=== PATIENT | female | born 1965 | race Caucasian/White ===

== ENCOUNTER 2024-01-10 08:38 | Observation (INO) | payer OTHER ==
--- NOTE | 2024-01-10 09:14 | ED ---
General Adult HPI - General Chief complaint: Headache Stated complaint: Headache Time Seen by Provider: 01/10/24 08:44 Source: patient, family Mode of arrival: ambulatory Limitations: no limitations - History of Present Illness Initial comments: Dictation was produced using [employer] dictation software. please excuse any grammatical, word or spelling errors. Chief Complaint: 58-year-old female presents emergency department with headache History of Present Illness: Patient is a 58-year-old female presents to the emergency department with headache. Patient's headache started at around 7:30 AM today. Patient states is one of the worst headaches of her life. Maximal at onset. Patient was having a bowel movement when her symptoms began. She was s een in the emergency department last week for similar episode while she was straining. She initially presented to [facility] emergency department was sent here because [facility] is is unable to perform any CT imaging or do any labs due to EMR being down. Patient denies any numbness ting paresthesias to the arms or legs. The ROS documented in this emergency department record has been reviewed and confirmed by me. Those systems with pertinent positive or negative responses have been documented in the HPI. All other systems are other negative and/or noncontributory. - Related Data Home Medications Medication Instructions Recorded Confirmed No Known Home Medications 01/10/24 01/10/24 Allergies Allergy/AdvReac Type Severity Reaction Status Date / Time codeine AdvReac Nausea & Verified 01/10/24 10:21 Vomiting Review of Systems ROS Statement: Those systems with pertinent positive or pertinent negative responses have been documented in the HPI. ROS Other: All systems not noted in ROS Statement are negative. Past Medical History Past Medical History: No Reported History History of Any Multi-Drug Resistant Organisms: None Reported Past Surgical History: Bariatric Surgery Additional Past Surgical History / Comment(s): 2019- gastric bypass Past Psychological History: No Psychological Hx Reported Smoking Status: Never smoker Past Alcohol Use History: None Reported Past Drug Use History: Marijuana General Exam - General Exam Comments Initial Comments: PHYSICAL EXAM: General Impression: Alert and oriented x3, not in acute distress HEENT: Normocephalic atraumatic, extra-ocular movements intact, pupils equal and reactive to light bilaterally, mucous membranes moist. Cardiovascular: Heart regular rate and rhythm Chest: Able to complete full sentences, no retractions, no tachypnea Abdomen: abdomen soft, non-tender, non-distended, no organomegaly Musculoskeletal: Pulses present and equal in all extremities, no peripheral edema Motor: no focal deficits noted Neurological: CN II-XII grossly intact, no focal motor or sensory deficits noted Skin: Intact with no visualized rashes Psych: Normal affect and mood Limitations: no limitations Course Vital Signs 01/10/24 08:41 Temperature 98 F Pulse Rate 59 L Respiratory 16 Rate Blood Pressure 117/76 O2 Sat by Pulse 99 Oximetry - Reevaluation(s) Reevaluation #1: 01/10/24 09:46 Case was discussed with Dianelys from radiology department [facility] due to their EMR downtime they are not able to fax over documents however she did read the report from January 05 that patient had a CT brain and CT angiography. CT angiography was negative for any acute process. CT brain showed some dilation of cisterna magna. Medical Decision Making - Medical Decision Making Was pt. sent in by a medical professional or institution (, PA, LENS MOLD SETTER, urgent care, hospital, or residential...) When possible be specific @ -No Did you speak to anyone other than the patient for history (EMS, parent, family, police, friend...)? What history was obtained from this source @ -No Did you review nursing and triage notes (agree or disagree)? Why? @ -I reviewed and agree with nursing and triage notes Were old charts reviewed (outside hosp., previous admission, EMS record, old EKG, old radiological studies, urgent care reports/EKG's, residential records)? Report findings @ -No old charts were reviewed Differential Diagnosis (chest pain, altered mental status, abdominal pain women, abdominal pain men, vaginal bleeding, musculoskeletal, weakness, fever, dyspnea, syncope, headache, dizziness, GI bleed, back pain, seizure, CVA, palpatations, mental health)? @ -Differential Headache: Migraine, tension, cluster, carbon monoxide, central venous thrombosis, pension karma temporal arteritis, acute closure glaucoma, intercranial hemorrhage, mastoiditis, sinusitis, head injury, this is not meant to be an all-inclusive list. EKG interpreted by me (3pts min.). @ -None done X-rays interpreted by me (1pt min.). @ -None done CT interpreted by me (1pt min.). @ -CT brain and shows incidental finding of Noman cisterna magna otherwise no acute intracranial abnormalities noted U/S interpreted by me (1pt. min.). @ -None done What testing was considered but not performed or refused? (CT, X-rays, U/S, labs)? Why? @ -None What meds were considered but not given or refused? Why? @ -None Did you discuss the management of the patient with other professionals (professionals i.e. DrZander, PA, LENS MOLD SETTER, lab, RT, psych nurse, social services director, quality tester, teacher, traffic division commanding officer, block and case maker)? Give summary @ -Case discussed with hospitalist for admission Was smoking cessation discussed for >3mins.? @ -No Was critical care preformed (if so, how long)? @ -No Were there social determinants of health that impacted care today? How? (Homelessness, low income, unemployed, alcoholism, drug addiction, transportation, low edu. Level, literacy, decrease access to med. care, residential, rehab)? @ -No Was there de-escalation of care discussed even if they declined (Discuss DNR or withdrawal of care, Hospice)? DNR status @ -No What co-morbidities impacted this encounter? (DM, HTN, Smoking, COPD, CAD, Cancer, CVA, ARF, Chemo, Hep., AIDS, mental health diagnosis, sleep apnea, morbid obesity)? @ -None Was patient admitted / discharged? Hospital course, mention meds given and route, prescriptions, significant lab abnormalities, going to OR and other pertinent info. @ -58-year-old female presents to the emergency department for headache. States that this the worst headache of her life and was thunderclap in nature. Vital signs upon arrival are within acceptable limits. Patient distressed. She had a CT angiography that was negative for aneurysm or dissection [address] brain is negative for acute intracranial process. She has been having these episodes with straining recently. Patient given headache cocktail. Labs unremarkable. Disposition options were discussed. Patient is agreeable for observation admission with consultation to neurology. Undiagnosed new problem with uncertain prognosis? @ -No Drug Therapy requiring intensive monitoring for toxicity (Heparin, Nitro, Insulin, Cardizem)? @ -No Were any procedures done? @ -No Diagnosis/symptom? Acute, or Chronic, or Acute on Chronic? Uncomplicated (without systemic symptoms) or Complicated (systemic symptoms)? @ -Status migrainosus Side effects of treatment? @ -No Exacerbation, Progression, or Severe Exacerbation? @ -No Poses a threat to life or bodily function? How? (Chest pain, [place], [place], pneumonia, PE, COPD, DKA, ARF, appy, cholecystitis, CVA, Diverticulitis, Homicidal, Suicidal, threat to staff... and all critical care pts) @ -yes - Lab Data Result diagrams: 01/10/24 07:16 01/10/24 07:16 Lab Results 01/10/24 01/10/24 01/10/24 Range/Units 07:16 07:16 07:16 WBC 7.3 (3.8-10.6) k/uL RBC 4.75 (3.80-5.40) m/uL Hgb 14.5 (11.4-16.0) gm/dL Hct 43.0 (34.0-46.0) % MCV 90.5 (80.0-100.0) fL MCH 30.5 (25.0-35.0) pg MCHC 33.6 (31.0-37.0) g/dL RDW 13.3 (11.5-15.5) % Plt Count 225 (150-450) k/uL MPV 8.1 Neutrophils % 79 % Lymphocytes % 14 % Monocytes % 4 % Eosinophils % 1 % Basophils % 0 % Neutrophils # 5.8 (1.3-7.7) k/uL Lymphocytes # 1.1 (1.0-4.8) k/uL Monocytes # 0.3 (0-1.0) k/uL Eosinophils # 0.1 (0-0.7) k/uL Basophils # 0.0 (0-0.2) k/uL PT 10.5 (10.0-12.5) sec INR 0.9 (<1.2) APTT 24.1 (22.0-30.0) sec Sodium 138 (137-145) mmol/L Potassium 3.8 (3.5-5.1) mmol/L Chloride 108 H (98-107) mmol/L Carbon Dioxide 25 (22-30) mmol/L Anion Gap 5 mmol/L BUN 15 (7-17) mg/dL Creatinine 1.11 H (0.52-1.04) mg/dL Est GFR (CKD-EPI)AfAm 64 (>60 ml/min/1.73 sqM) Est GFR (CKD-EPI)NonAf 55 (>60 ml/min/1.73 sqM) Glucose 95 (74-99) mg/dL Calcium 9.0 (8.4-10.2) mg/dL Disposition Clinical Impression: Status migrainosus Disposition: ADMITTED IP TO THIS HOSP Condition: Fair Referrals: None,Stated [REFERRING] - 1-2 days Decision Time: 10:14
[2024-01-10] MEDS: MORPHINE SULFATE 4 MG/ML SYRINGE IVP STA (09:25)
[2024-01-10] MEDS: MAGNESIUM SULFATE-D5W PMX 1 GM in DEXTROSE/WATER 1 100ML.BAG IVPB SCH (09:27)
[2024-01-10] MEDS: SODIUM CHLORIDE 0.9% 1,000 ML IV STA (09:27)
--- NOTE | 2024-01-10 09:29 | CT ---
EXAMINATION TYPE: CT brain wo con DATE OF EXAM: 01/10/2024 COMPARISON: None HISTORY: 58-year-old female acute headache TECHNIQUE: Examination was done in axial plane without intravenous contrast. Coronal and sagittal r econstructions performed. CT DLP: 1095.4k mGycm Automated exposure control for dose reduction was used. FINDINGS: There is no evidence of acute intracranial hemorrhage, acute ischemic changes, mass, mass-effect, or extra-axial fluid collection. There is no effacement of cerebral sulci or basal subarachnoid cister ns. There is no hydrocephalus. There is no midline shift. Lino-white matter distinction is preserv ed. Incidental shana cisterna magna. Orbits and globes are intact. Slight leftward nasal septal deviation. Paranasal sinuses and mastoid a ir cells are pneumatized. IMPRESSION: Incidental megacisterna magna. No acute intracranial abnormality seen.
[2024-01-10 09:34] LABS: Basophils % (A) 0 %; Eosinophils # (A) 0.1 k/uL (0-0.7); Eosinophils % (A) 1 %; HGB 14.5 gm/dL (11.4-16.0); Lymphocytes # (A) 1.1 k/uL (1.0-4.8); Lymphocytes % (A) 14 %; MCH 30.5 pg (25.0-35.0); MCHC 33.6 g/dL (31.0-37.0); MCV 90.5 fL (80.0-100.0); Mean Platelet Volume 8.1; Monocytes # (A) 0.3 k/uL (0-1.0); Monocytes % (A) 4 %; Neutrophils # (A) 5.8 k/uL (1.3-7.7); Neutrophils % (A) 79 %; Platelet Count 225 k/uL (150-450); RBC 4.75 m/uL (3.80-5.40); RDW 13.3 % (11.5-15.5); WBC 7.3 k/uL (3.8-10.6)
[2024-01-10 09:45] LABS: African American GFR (CKD) 64 (>60 ml/min/1.73 sqM); Anion Gap 5 mmol/L; Blood Urea Nitrogen 15 mg/dL (7-17); Carbon Dioxide 25 mmol/L (22-30); Chloride 108 mmol/L (98-107); Glucose 95 mg/dL (74-99); Non-African American GFR(CKD) 55 (>60 ml/min/1.73 sqM); Potassium 3.8 mmol/L (3.5-5.1); Sodium 138 mmol/L (137-145)
[2024-01-10 09:49] LABS: INR 0.9 (<1.2); Partial Thromboplastin Time 24.1 sec (22.0-30.0); Prothrombin Time 10.5 sec (10.0-12.5)
[2024-01-10] MEDS ORDERED: NALOXONE 0.4 MG/ML 1 ML VIAL IV PRN (11:08)
[2024-01-10] MEDS: MORPHINE SULFATE 4 MG/ML SYRINGE IVP PRN (11:15)
[2024-01-10] MEDS: SODIUM CHLORIDE 0.9% 1,000 ML IV SCH (12:34)
[2024-01-10] MEDS: KETOROLAC 15 MG/ML 1 ML VIAL IVP STA (13:56)
[2024-01-10] MEDS: DEXAMETHASONE SOD PHOSPHATE 4 MG/ML 1 ML VIAL IVP STA (13:58)
[2024-01-10] MEDS: diphenhydrAMINE 50 MG/ML 1 ML VIAL IVP STA (14:00)
--- NOTE | 2024-01-10 15:30 | P.HPIM ---
History of Present Illness H&P Date: 01/10/24 History of Presenting Illness: Patient is a very pleasant 58-year-old female with a past medical history of previous alcohol dependence but reports quitting years ago prior to gastric bypass in 2019, and occasional cannabis use. She presented to the emergency department secondary to an intractable migraine. Patient denies history of migraine headaches. She reports they recently bought a house in town and she was moving heavy boxes 1 week ago and suddenly experienced a severe migraine headache radiating from the base of her skull all up laterally and into her left temporal region. Patient reports at that time she was evaluated at [facility] and underwent a CT of her head and CTA head and neck which was reported to be normal findings per patient and significant other at bedside. Patient states since then her headaches somewhat improved but has been waxing and waning and again today sudden onset severe headache which has been intractable accompanied by significant photophobia. She denies having any dizziness, lightheadedness, diaphoresis, changes in vision, tinnitus or changes in hearing, dysphagia, difficulty with or changes in speech, neck pain, back pain, chest pain, palpitations, shortness of breath, or experiencing any numbness/tingling/weakness in her extremities. She again went to [facility] and was transferred to our facility for further evaluation. Upon arrival to our facility, patient underwent evaluation in the emergency department. Vital signs upon arrival show blood pressure 117/76, heart rate 59, respiratory rate 16, temp 98.0 F, and SpO2 of 99% on room air. CT head was completed showing incidental Megacisterna magna but negative for acute intracranial abnormality. Labs were completed and reviewed. CBC and coagulation profile normal findings. BMP showing hyperchloremia with chloride of 108 and slightly elevated creatinine of 1.11. Patient was admitted under services for intractable migraine with consultation to neurology. Review of systems: Pertinent positives and negatives as discussed in HPI, a complete review of systems was performed and all other systems are negative. Physical exam: Vital signs reviewed and stable. General: Nontoxic, no distress and appears stated age. Derm: Skin warm and dry, normal coloration for ethnicity. Head: Atraumatic, normocephalic and symmetric. Eyes: EOMs intact, no lid lag, and anicteric sclera Mouth: no lip lesions, mucus membranes moist Cardiovascular: regular rate and rhythm with normal S1S2, no murmur, positive posterior tibial pulses bilaterally, and cap refill < 2 seconds. Lungs: Respirations even, regular, and unlabored on room air. Lungs CTA bilaterally, no rhonchi, no rales, no wheezing, and no accessory muscle usage. Abdominal: soft, nontender to palpation, no guarding, no appreciable organomegaly Ext: ROM intact. No gross muscle atrophy, no edema, no contractures Neuro: Speech clear, face symmetrical and CN II-XII grossly intact with no noted focal neuro deficits Psych: Alert and oriented to person, place, time, and situation. Appropriate and pleasant affect. Assessment and Plan of Care: Intractable migraine headache Photophobia Megacisterna magna -CT head showing incidental Megacisterna magna but negative for acute intracranial abnormality. -Consult neurology -Order placed for CT cervical spine -Order placed for MRI brain without contrast -Neuro checks every 4 hours and as needed -Symptomatic care and pain management -ESR Data and imaging reviewed: As stated above in HPI The patient is admitted with an anticipated less than 2 midnight stay for evaluation of intractable migraine headache CODE STATUS: Full code DVT prophylaxis: SCDs Discussed with: Patient, patient's , ED physician, RN, and neurologist Anticipated discharge date: 24 to [address]: Home Patient was seen independently by Nurse Practitioner. This document was prepared using [employer] dictation software. Please allow for errors in certified alcohol drug counselor while rare they do occur. Zen Beck NP rendered care for this patient independently, reviewed the findings and plan as documented in the note above. I did not physically speak with or examine the patient on this date. Past Medical History Past Medical History: No Reported History History of Any Multi-Drug Resistant Organisms: None Reported Past Surgical History: Bariatric Surgery Additional Past Surgical History / Comment(s): 2019- gastric bypass Past Psychological History: No Psychological Hx Reported Smoking Status: Never smoker Past Alcohol Use History: None Reported Past Drug Use History: Marijuana Medications and Allergies Home Medications Medication Instructions Recorded Confirmed Type No Known Home Medications 01/10/24 01/10/24 History Allergies Allergy/AdvReac Type Severity Reaction Status Date / Time codeine AdvReac Nausea & Verified 01/10/24 10:21 Vomiting Physical Exam Osteopathic Statement: *. No significant issues noted on an osteopathic structural exam other than those noted in the History and Physical/Consult. Vitals: Vital Signs Temp Pulse Resp BP Pulse Ox 01/10/24 08:41 98 F 59 L 16 117/76 99 Intake and Output 01/09/24 01/10/24 01/10/24 22:59 06:59 14:59 Other: Weight 89.811 kg Results CBC & Chem 7: 01/10/24 07:16 01/10/24 07:16 Labs: Abnormal Lab Results - Last 24 Hours (Table) 01/10/24 Range/Units 07:16 Chloride 108 H (98-107) mmol/L Creatinine 1.11 H (0.52-1.04) mg/dL
[2024-01-10] MEDS: PROCHLORPERAZINE INJ 10 MG/2 ML VIAL IVP STA (16:48)
--- NOTE | 2024-01-10 18:13 | P.CNNES ---
History of Present Illness Consult date: 01/10/24 Requesting physician: Billy Eldridge Reason for Consult: status migrainosus History of Present Illness: This is a 58-year-old woman who presented the hospital because of headache. Some of the history is obtained from the patient's primary team. Somewhat limited since the patient was slightly confused from the medication she received for the headache. Seems that the patient has been having a headache 1 week after picking up a heavy box. She feels the headache is over the neck region and the temporal region and she states the headache was 8/10 without its a pressure or squeezing headache. She notified the primary team that the headache was started mostly in the neck and would radiate to the temporal region. She did have nausea and vomiting. No focal weakness or numbness. She did have some photophobia and phonophobia. No recent fevers or sickness. She denies any similar headaches like this in the past. It seems that she was evaluated at [facility] recently and she had a CT of the head and CT angiography according to the primary team the CT angiography was unremarkable. The CT of the head according the patient shows some fluid base of the head and was told that she could have been born with that according to the patient. She went to [facility] again and it seems they are unable to perform any CT imaging or labs due to EMR being down. Patient denies of any numbness. Denies any similar headache like this before. Denies any history of migraine. Denies any head trauma. She notified me that the headache is currently 5/10. Some of the work-up during this hospital visit consisted of: Patient is afebrile. CBC with differential is unremarkable I reviewed the chemistry panel. Her creatinine is 1.1 CT head is reported as incidental Megacisterna magna. No acute intracranial abnormality seen. Personally reviewed the CT and I agree she has a incidental finding but other than that no acute intracranial process. Review of Systems Limited but positive and negative as per HPI. Past Medical History Past Medical History: No Reported History History of Any Multi-Drug Resistant Organisms: None Reported Past Surgical History: Bariatric Surgery Additional Past Surgical History / Comment(s): 2019- gastric bypass Past Psychological History: No Psychological Hx Reported Smoking Status: Never smoker Past Alcohol Use History: None Reported Past Drug Use History: Marijuana Medications and Allergies Home Medications Medication Instructions Recorded Confirmed Type No Known Home Medications 01/10/24 01/10/24 History Allergies Allergy/AdvReac Type Severity Reaction Status Date / Time codeine AdvReac Nausea & Verified 01/10/24 10:21 Vomiting Physical Examination - Vital Signs Vital Signs: Vital Signs Temp Pulse Resp BP Pulse Ox 01/10/24 15:25 50 L 16 124/78 98 01/10/24 08:41 98 F 59 L 16 117/76 99 Intake and Output 01/10/24 01/10/24 01/10/24 06:59 14:59 22:59 Other: Weight 89.811 kg General: Lying in bed and is not in acute distress. HENT: Supple neck. No tenderness on palpation of neck or head. NEUROLOGICAL: Higher mental function: The patient is somewhat drowsy and is awakeable to voice, oriented to self, place and time. Patient is following commands. No aphasia and no neglect. Cranial nerves: The pupils are round, 2mm equal and reactive to light and accommodation. Visual wolf are full to confrontation throughout. Extraocular movement is intact no nystagmus is noted. Facial sensation is normal to touch throughout. The facial strength is normal throughout. Hearing is normal bilaterally to hand rub. Tongue is midline and moved [id number] without any difficulty. No dysarthria is noted. Shoulder shrug is normal bilaterally. Motor: The strength is 5 over 5 throughout. Normal tone and bulk. Cerebellum: Normal finger to nose heel to chin bilaterally. Sensation: Sensation is normal to touch throughout. Reflexes (right/left): 2+ throughout. Plantars are downgoing bilaterally. Results - Laboratory Findings CBC and BMP: 01/10/24 07:16 01/10/24 07:16 Abnormal Lab Findings: Abnormal Labs 01/10/24 07:16 Chloride 108 H Creatinine 1.11 H Assessment and Plan Assessment: This is a 58-year-old woman presents to our ED facility because of a headache for the last 1 week. It seems she recently moved and that she lifted a heavy box and is having neck pain as well as temporal pain with nausea vomiting photophobia phonophobia. It seems that she had imaging at [facility] with CT/CT angiography of the head and neck which showed incidental finding and was notified that CTA head and neck are unremarkable. Acute Cephalgia: Possible cervicogenic. Has no focal deficit Incidental Megacisterna magna on CT Plan: MRI of the brain as well as MRV. Meantime I will get a repeat CT angiography of the head and neck I ordered ESR, TSH, vitamin B12 In the ED the patient was given Benadryl, Valium, Toradol, morphine and Decadron. I started the patient on Flexeril 5mg bid as well as Fioricet as needed Will defer the rest of the medical management to primary team Plan discussed with the patient and the primary team Thank for the consultation Time with Patient: Greater than 30
--- NOTE | 2024-01-10 19:34 | CT ---
EXAMINATION TYPE: CT cervical spine wo con CT DLP: mGycm, Automated exposure control for dose reduction was used. DATE OF EXAM: 01/10/2024 7:22 PM COMPARISON: None. CLINICAL INDICATION:Female, 58 years old with history of intractable migraine; PHH, TECHNIQUE: Axial CT images from the skull base to the inferior aspect of T2 we obtained without intra venous contrast. Coronal and sagittal reformatted images were also reviewed. Contrast used: (if blank None) Oral contrast used: (if blank None) FINDINGS: Fracture: None. Osseous structures: Mild multilevel degenerative changes of the cervical spine. Vertebral alignment: Mild straightening of the normal cervical lordotic curve. Spinal canal/Neural Foramina: No evidence of significant spinal canal narrowing. No evidence for sign ificant neural foraminal stenosis. Neck soft tissues: Prevertebral soft tissues are within normal limits. Other: The airway is patent. The lung apices are clear. IMPRESSION: 1. No evidence of cervical spine fracture. 2. Mild multilevel degenerative disc disease.
[2024-01-10] MEDS: CYCLOBENZAPRINE 5 MG TAB PO SCH (19:58)
--- NOTE | 2024-01-10 20:08 | CT ---
EXAMINATION TYPE: CT angio head neck CT DLP: 610 mGycm, Automated exposure control for dose reduction was used. DATE OF EXAM: 01/10/2024 7:38 PM COMPARISON: CT brain performed same day. CLINICAL INDICATION:Female, 58 years old with history of headache. TECHNIQUE: Axially acquired helical CT angiogram of the head and neck was obtained with contrast. Axi al images are supplemented with 3D reconstructions [facility] NASCET criteria used. Contrast used:65 mL of Isovue 370 without and with IV Contrast, Oral contrast used: None. FINDINGS: Bolus timing and does somewhat limit evaluation. CTA HEAD: The visualized portions of the internal carotid arteries, middle cerebral arteries, anterior cerebral arteries, and posterior cerebral arteries are patent. The basilar and vertebral arteries are patent. No evidence of aneurysm formation or vascular malforma tion. CTA NECK: Right Carotid System: The common carotid artery and external carotid artery are patent. The carotid bifurcation demonstrate s no evidence of hemodynamically significant stenosis. The remaining portions of the internal carotid artery demonstrate normal size without significant narrowing. Left Carotid System: The common carotid artery and external carotid artery are patent. The carotid bifurcation demonstrate s no evidence of hemodynamically significant stenosis. The remaining portions of the internal carotid artery demonstrate normal size without significant narrowing. Vertebral arteries are patent without evidence hemodynamically significant stenosis. There is a three-vessel aortic arch. The origins of the great vessels are patent. No evidence of hemo dynamically significant stenosis. Upper thorax: Unremarkable. IMPRESSION: 1. No evidence of dissection of the cervical internal carotid arteries or vertebral arteries or any e vidence of significant stenosis at the carotid bifurcations. 2. No evidence of intracranial high-grade stenosis or intracranial aneurysm.
[2024-01-10] MEDS: ONDANSETRON 4 MG/2 ML VIAL IVP STA (21:10)
[2024-01-10] MEDS: MORPHINE SULFATE 4 MG/ML SYRINGE IV PRN (23:06)
[2024-01-10] MEDS: BUTALB/APAP/CAFF 50-325-40MG TAB PO PRN (23:16)
--- NOTE | 2024-01-11 10:26 | MR ---
EXAMINATION TYPE: MRA head wo con MRV head wo con DATE OF EXAM: 01/11/2024 10:11 AM CLINICAL INDICATION:Female, 58 years old with history of intractable migraine, Intractable migraine. COMPARISON: MR brain same day TECHNIQUE: MRA brain: 3-D [id number] Axial with MIP and 3-D reconstruction performed on a separate workstati on. MRV of the brain: performed utilizing two-dimensional [id number] technique MIP and 3-D reconstruc tion. Performed on a separate workstation. IV Contrast: cc (None if empty) Findings: Vertebral arteries: The vertebral arteries are patent. Codominant vertebral arteries. Basilar artery: The basilar artery is intact. The basilar artery bifurcation is normal. Internal Carotid arteries: The cervical, petrous, cavernous and supraclinoid segments are normal. SERGEY: Patent without evidence of aneurysm. ACOM: Patent without evidence of aneurysm. MCA: Patent without evidence of aneurysm. 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 PCOM: Hypoplastic bilaterally. There is no evidence of venous occlusion or collateral circulation. There is no evidence of sinus th rombosis. There is a shana cisterna magna in the posterior cranial fossa. Dominant right and hypoplast ic left transverse sinus. IMPRESSION: 1. No evidence of venous sinus thrombosis. 2. No evidence of intracranial aneurysm or significant stenosis.
[2024-01-11] MEDS: PROCHLORPERAZINE INJ 10 MG/2 ML VIAL IVP PRN (10:37)
--- NOTE | 2024-01-11 10:44 | MR ---
EXAMINATION TYPE: MR brain wo/w con DATE OF EXAM: 01/11/2024 10:34 AM CLINICAL INDICATION:Female, 58 years old with history of intractable migraine; Intractable migraine. COMPARISON: Same day MRA, MRV TECHNIQUE: Multi planar, multi sequence imaging was performed through the brain including: T1, T2, In version recovery, susceptibility weighted imaging and gradient echo imaging and Diffusion weighted im aging. The patient was then given intravenous contrast and multi planar, T1 fat-saturation images wer e obtained. IV Contrast: 9 cc Gadavist FINDINGS: The eduardo-white junctions, ventricular system, basal cisterns appear unremarkable. Diffusion-weighted imaging shows no evidence of restricted diffusion to suggest acute/subacute infarct. Intracranial ar terial flow voids are maintained. Midline structures show no abnormality. Minimal scattered foci of h igh T2 signal intensity are seen within the periventricular white matter. The susceptibility weighted images do not reveal any evidence for micro-hemorrhage. After administration of gadolinium, no abnor mal enhancement is seen. Noman-cisterna magna is present. The bone marrow signal is within normal limits. Paranasal sinuses and mastoid air cells: No significant paranasal sinus disease. Visualized orbits: Orbital contents are intact. IMPRESSION: 1. No evidence of intracranial mass, acute/subacute infarct, or abnormal enhancement. 2. Nonspecific white matter changes, possibly relating to sequela of migraines versus small vessel is chemic disease.
[2024-01-11 10:45] LABS: HCT 41.3 % (37.2-46.3); HGB 13.4 g/dL (12.0-15.0); MCH 30.1 pg (27.0-32.0); MCHC 32.4 g/dL (32.0-37.0); MCV 92.8 FL (80.0-97.0); Mean Platelet Volume 10.6 FL (9.5-12.2); NRBC Per 100 WBC 0 X 10*3/uL (0.00-0.01); Platelet Count 227 X 10*3/uL (140-440); RBC 4.45 X 10*6/uL (4.10-5.20); WBC 9.35 X 10*3/uL (4.50-10.00)
[2024-01-11 11:04] LABS: BUN/Creat Ratio 12.33 Ratio (12.00-20.00); Blood Urea Nitrogen 14.8 mg/dL (9.0-27.0); Calcium 9.4 mg/dL (8.7-10.3); Carbon Dioxide 22.9 mmol/L (21.6-31.8); Chloride 106 mmol/L (96-109); Glucose 110 mg/dL (70-110); Magnesium 2.1 mg/dL (1.5-2.4); Potassium 4.7 mmol/L (3.5-5.5); Sodium 141 mmol/L (135-145)
--- NOTE | 2024-01-11 11:51 | P.PN ---
Subjective Progress Note Date: 01/11/24 I am following-up with patient and she is accompanied with her . The states she has been getting her neck manipulated recently. Currently the patient states her headache is controlled with pain medication and is 0/10. She is getting Morphine PRN and Compazine PRN. Objective - Vital Signs Vital signs: Vital Signs Temp 97.8 F 01/11/24 07:20 Pulse 60 01/11/24 07:20 Resp 18 01/11/24 07:20 BP 113/60 01/11/24 07:20 Pulse Ox 100 01/11/24 07:20 FiO2 Intake & Output 01/10/24 01/11/24 01/11/24 18:59 06:59 18:59 Intake Total 237 Balance 237 Weight 89.811 kg Intake: Oral 237 Other: Voiding Method Toilet # Voids 2 - Exam General: Lying in bed and is not in acute distress. NEUROLOGICAL: Higher mental function: The patient is somewhat drowsy and is awakeable to voice, oriented to self, place and time. Patient is following commands. No aphasia and no neglect. Cranial nerves: TVisual wolf are full to confrontation throughout. Extraocular movement is intact no nystagmus is noted. Facial sensation is norm al to touch throughout. The facial strength is normal throughout. Hearing is normal bilaterally to hand rub. Tongue is midline and moved [id number] without any difficulty. No dysarthria is noted. Shoulder shrug is normal bilaterally. Motor: The strength is 5 over 5 throughout. Normal tone and bulk. Sensation: Sensation is normal to touch throughout. Some of the work-up during this hospital visit consisted of: Patient is afebrile. CBC with differential is unremarkable ESR is 12 B12: 658 TSH: 2.12 CT head is reported as incidental Megacisterna magna. No acute intracranial abnormality seen. Personally reviewed the CT and I agree she has a incidental finding but other than that no acute intracranial process. CT cervical spine is reported as no evidence of cervical spine fracture. Mild multilevel degenerative disc disease CTA head and neck: No evidence of dissection of the cervical internal carotid arteries or vertebral arteries or any evidence of significant stenosis at the carotid bifurcation. No evidence of intracranial high grade stenosis or intracranial aneurysm. - Labs CBC & Chem 7: 01/11/24 06:13 01/11/24 06:13 Labs: Abnormal Lab Results - Last 24 Hours (Table) 01/11/24 Range/Units 06:13 Anion Gap 12.10 H (4.00-12.00) mmol/L Est GFR (CKD-EPI) 52 L (>=60) Assessment and Plan Assessment: This is a 58-year-old woman presents to our ED facility because of a headache for the last 1 week. It seems she recently moved and that she lifted a heavy box and is having neck pain as well as temporal pain with nausea vomiting photophobia phonophobia. It seems that she had imaging at [facility] with CT/CT angiography of the head and neck which showed incidental finding and was notified that CTA head and neck are unremarkable. Per she has been getting manipulation of neck by chiropractor recently Acute Cephalgia: Possible cervicogenic. Has no focal deficit. No dissection on CTA--headache is controlled today. 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 Continue Flexeril 5mg bid as well as Fioricet as needed She is on Morphine and Compazine PRN by primary team. Please avoid sedative and limit opiates. I notified the patient and her that she needs to avoid neck manipulation because of risk of dissection that leads to stroke. Will defer the rest of the medical management to primary team Plan discussed with the patient, her and the primary team. Time with Patient: Less than 30
--- NOTE | 2024-01-11 14:46 | P.DS ---
Providers Date of admission: 01/10/24 11:08 Expected date of discharge: 01/11/24 Attending physician: Khadijah Mejia DO Consults: 01/10/24 10:10 Consult Physician Routine Consulting Provider: Bubba Ortega Consult Reason/Comments: status migrainosus Do you want consulting provider notified?: Yes Primary care physician: Physician Nonstaff Hospital Course: Discharge Diagnosis: Intractable migraine headache Photophobia Megacisterna magna Hospital Course: Patient is a very pleasant 58-year-old female with a past medical history of previous alcohol dependence but reports quitting years ago prior to gastric bypass in 2019, and occasional cannabis use. She presented to the emergency department secondary to an intractable migraine. Patient denies history of migraine headaches. She reports they recently bought a house in town and she was moving heavy boxes 1 week ago and suddenly experienced a severe migraine headache radiating from the base of her skull all up laterally and into her left temporal region. Patient reports at that time she was evaluated at [facility] and underwent a CT of her head and CTA head and neck which was reported to be normal findings per patient and significant other at bedside. Patient states since then her headaches somewhat improved but has been waxing and waning and again today sudden onset severe headache which has been intractable accompanied by significant photophobia. She denies having any dizziness, lightheadedness, diaphoresis, changes in vision, tinnitus or changes in hearing, dysphagia, difficulty with or changes in speech, neck pain, back pain, chest pain, palpitations, shortness of breath, or experiencing any numbness/tingling/weakness in her extremities. She again went to [facility] and was transferred to our facility for further evaluation. Upon arrival to our facility, patient underwent evaluation in the emergency department. Vital signs upon arrival show blood pressure 117/76, heart rate 59, respiratory rate 16, temp 98.0 F, and SpO2 of 99% on room air. CT head was completed showing incidental Megacisterna magna but negative for acute intracranial abnormality. Labs were completed and reviewed. CBC and coagulation profile normal findings. BMP showing hyperchloremia with chloride of 108 and slightly elevated creatinine of 1.11. Patient was admitted under services for intractable migraine with consultation to neurology. CT cervical spine completed negative showing no evidence of cervical spine fracture revealing mild multilevel degenerative disc disease. CTA head and neck unremarkable showing no evidence of dissection or stenosis and no evidence of intracranial high-grade stenosis or aneurysm. ESR was normal findings at 12. Vitamin B12 normal at 658. TSH also normal findings at 2.120. Brain MRA/MRV completed showing no evidence of venous sinus thrombosis or no evidence of intracranial aneurysm or significant stenosis. Brain MRI with and without contrast negative for intracranial mass, acute or subacute infarct, or abnormal enhancement showing nonspecific white matter changes possibly relating to sequela of migraines versus small vessel ischemic disease. Currently headache has improved and rated 3 out of 10 from previous 10 out of 10. Nausea and vomiting has subsided. Discussed in detail with patient and neurologist, patient to be discharged home will be given prescription for Fioricet, Flexeril, and Compazine. Patient new to this area and referred to local PCP to establish primary care and recommended outpatient follow-up with neurology for migraines. Physical exam: Vital signs reviewed and stable. General: Nontoxic, no distress and appears stated age. Derm: Skin warm and dry, normal coloration for ethnicity. Head: Atraumatic, normocephalic and symmetric. Eyes: EOMs intact, no lid lag, and anicteric sclera Mouth: no lip lesions, mucus membranes moist Cardiovascular: regular rate and rhythm with normal S1S2, no murmur, positive posterior tibial pulses bilaterally, and cap refill < 2 seconds. Lungs: Respirations even, regular, and unlabored on room air. Lungs CTA bilaterally, no rhonchi, no rales, no wheezing, and no accessory muscle usage. Abdominal: soft, nontender to palpation, no guarding, no appreciable organomegaly Ext: ROM intact. No gross muscle atrophy, no edema, no contractures Neuro: Speech clear, face symmetrical and CN II-XII grossly intact with no noted focal neuro deficits Psych: Alert and oriented to person, place, time, and situation. Appropriate and pleasant affect. A total of 35 minutes of time were spent preparing this complex discharge summary. Pt was discharged on 01/11/2024 at 2:42 PM Patient was seen independently by Nurse Practitioner. This document was prepared using [employer] dictation software. Please allow for errors in developmental psychologist while rare they do occur. Zne Beck NP rendered care for this patient independently, reviewed the findings and plan as documented in the note above. I did not physically speak with or examine the patient on this date. Patient Condition at Discharge: Stable Plan - Discharge Summary Discharge Rx Participant: No New Discharge Prescriptions: New Cyclobenzaprine [Flexeril] 5 mg PO BID #14 tab Prochlorperazine [Compazine] 10 mg PO Q6H #20 tab Butalb/APAP/Caff 50-325-40Mg [Fioricet 50-325-40] 1 each PO Q4HR PRN #30 tab PRN Reason: Headache Discharge Medication List Butalb/APAP/Caff 50-325-40Mg [Fioricet 50-325-40] 1 each PO Q4HR PRN #30 tab 01/11/24 [Rx] Cyclobenzaprine [Flexeril] 5 mg PO BID #14 tab 01/11/24 [Rx] Prochlorperazine [Compazine] 10 mg PO Q6H #20 tab 01/11/24 [Rx] Follow up Appointment(s)/Referral(s): Danna Carrion MD [REFERRING] - 1 Week Casey Taylor MD [REFERRING] - 1-2 Days (Recommend calling to schedule appointment for establishing care with PCP. ) Patient Instructions/Handouts: Migraine Headache (ED) Activity/Diet/Wound Care/Special Instructions: Activity: As tolerated. Take breaks as needed. Diet: Heart healthy and carb consistent diet. Avoid salts, or foods with hidden salts such as canned or boxed foods and frozen dinners. Extra salt makes your heart work harder and traps the fluid in your body for longer. Special Instructions: Take all of your medications as directed and remember to keep all of your doctor's appointments and follow-up as needed. Thank you for allowing us to participate in your care, it was truly a pleasure having you for our patient!!! Discharge Disposition: HOME SELF-CARE
[2024-01-11 15:09] VITALS: BP 111/66; PULSE 57; RESP 16; TEMP 98.4
== END 2024-01-11 15:01 | disposition home or self-care (01) ==
LOC: EC 08:38 → 6NMEDSUR 11:08
PROVIDERS: ADMIT Internal Medicine; ATTEND Internal Medicine
DX: G43.911 Migraine, unspecified, intractable, with status migrainosus (principal); Z98.84 Bariatric surgery status
CPT/HCPCS: 96366 ×2; 96376; 96361; 96365; 96367 ×2; 96375; 99285; 36415; 80048 ×2; 85652; 84443; 82607; 83735; 85025; 85027; 85610; 85730; 72125; 70496; 70450; 70498; 70553; 70544; G0378 ×2; J2270 ×2; J1200; J0780 ×2; J1100; J3360; J2405; J3475; J1885; Q9967; A9585